=== PATIENT | male | born 1965 | race Caucasian/White ===

== ENCOUNTER 2017-07-24 12:16 | Day surgery (SDC) | payer MEDICARE, OTHER ==
[~2017-07-24] VITALS: Ht 188 cm; Wt 101.7 kg
[~2017-07-24 12:16] MED LIST: CYCL-117 PO; FOLI-49 PO; IBUP800T25 PO; TRAM-40 PO
[2017-07-24] MEDS ORDERED: MONT10TA21 PO (12:48)
[2017-07-24] MEDS ORDERED: GABA300C16 PO (12:48)
[2017-07-24] MEDS ORDERED: OMEP40CA6 PO (12:49)
[2017-07-24] MEDS ORDERED: CELE100C PO (12:49)
[2017-07-24 14:34] VITALS: Ht 188 cm; Wt 101.7 kg
[2017-07-24 14:36] VITALS: BP 112/61; PULSE 94; RESP 18
--- NOTE | 2017-07-24 19:02 | HPN ---
Date/Time of Note Date/Time of Note DATE: 07/24/17 TIME: 18:59 Interval H&P Admission Note Pt. seen H&P reviewed: No system changes Patient scheduled for surgery 5 pm on this date. Apparently, OR scheduling mismanaged available trays and instruments not available for surgical case at time of operation. This was explained to the patient as was the anticipated delay of 50 minutes. Unfortunately, 1 hour and 20 minutes later, we learned that the anesthesiologist assigned to the case had left and the covering anesthesiologist was instructed to do another case. This bump added and additional 1 hour delay which the patient was not willing to accept. I gave him my assurance that I would try and get him onto the schedule as soon as possible first in the line up. Despite the tremendous dis-service done to him, he was polite and accepted the circumstances. BRANDON MORENO MD Jul 24, 2017 19:02
== END 2017-07-24 20:56 | disposition home or self-care (01) ==
LOC: SDS 12:16
PROVIDERS: ATTEND Otolaryngology
DX: J34.89 Other specified disorders of nose and nasal sinuses (principal); Z53.9 Procedure and treatment not carried out, unspecified reason

== ENCOUNTER 2017-08-07 10:11 | Day surgery (SDC) | payer MEDICARE, OTHER ==
[~2017-08-07] VITALS: Ht 188 cm; Wt 106.3 kg
[2017-08-07] VITALS (10 sets, daily range): BP systolic 106–135; BP diastolic 56–80; PULSE 52–74; RESP 16–24; Ht 188 cm; Wt 106.3 kg
[~2017-08-07 10:11] MED LIST changes: +CEFAZOLIN 1 GM INJ ONE; +CELE100C PO; +CLINDAMYCIN 900 MG/50 ML D5W IVPB IVPB ONE; -CYCL-117 PO; -FOLI-49 PO; +GABA300C16 PO; -IBUP800T25 PO; +LIDOCAINE 2% (SDV) 5 ML INJ ONE; +MONT10TA21 PO; +OMEP40CA6 PO; -TRAM-40 PO
--- NOTE | 2017-08-07 12:28 | HPN ---
Date/Time of Note Date/Time of Note DATE: 08/07/17 TIME: 12:28 Interval H&P Admission Note Pt. seen H&P reviewed: No system changes BRANDON MORENO MD Aug 07, 2017 12:28
[2017-08-07] MEDS ORDERED: PROPOFOL 20 ML ONE (12:44)
[2017-08-07] MEDS ORDERED: LIDOCAINE 1%/EPI 30 ML INJ ONE (12:46)
[2017-08-07] MEDS ORDERED: COCAINE 4% 4 ML TOP ONE (12:47)
[2017-08-07] MEDS ORDERED: ROCURONIUM 50 MG INJ ONE (12:48)
[2017-08-07] MEDS ORDERED: DEXAMETHASONE 4 MG/ML 1 ML INJ ONE (13:23)
[2017-08-07] MEDS ORDERED: ONDANSETRON 4 MG INJ ONE (13:23)
[2017-08-07] MEDS ORDERED: EPINEPHrine 0.1 MG/ML SYG ONE (13:26)
[2017-08-07] MEDS ORDERED: BACITRACIN 0.9 GM OINT ONE ×2 (14:13→14:14)
[2017-08-07] MEDS ORDERED: BACITRACIN/POLYMYXIN 28.35 GM OINT TOP ONE (14:15)
[2017-08-07] MEDS ORDERED: LABETALOL HCL 20MG INJ ONE (14:19)
--- NOTE | 2017-08-07 14:36 | OPR ---
Date/Time of Note Date/Time of Note DATE: 08/07/17 TIME: 14:29 Operative Report Procedure Date: Aug 07, 2017 Preoperative Diagnosis Acquired nasal deformity, valve collapse, nasal congestion. Postoperative Diagnosis Same Operation/Procedure Performed Open nasoseptal reconstruction, compliance lead grafting, nasal tip rhinoplasty, submucous resection of inferior turbinates, placement of internal splints. Surgeon see signature line Steward/Stewardess Room None Anesthesia Type: general Estimated Blood Loss: 10 - 50 ml's Transfusion none Specimen none Grafts/Implants none Complications none Pt Condition Post Procedure: stable Disposition: PACU Indications Nasal congestion due to acquired nasal deformity. Procedure Description Description of procedure: The patient was identified in the holding area. We had a discussion to confirm understanding of all indications risks benefits alternatives and postoperative care associated with the operation. The patient signed informed consent was taken to the operating room. The patient was laid supine on the operating room table and general anesthesia was achieved without difficulty. The face was draped in sterile fashion and the nose was packed with 4% cocaine pledgets. The nasal septum was infiltrated with 5 cc of 1% lidocaine with epinephrine in the submucoperiosteal plane bilaterally. The face was prepped and draped sterilly. An inverted V collumelar incision was made and the skin soft tissue envelope elevated. The cartilagenous nasal skeleton was freed from excessive scar, and overlying soft tissues. The septum had been crushed internally and folded on itself. The LLC were bowed internally. The spetum was at the fractured segment and the intermediate crura of the LLCs were removed and flipped over. All were sewn back into proper position with interrupted nylon suture. The septal cartilage was crosshatched and replaced. Thermal Surfacing Machine Operator grafts were harvested from the posterior cartilagenous septum and placed between the ULC and septum. These were secured with 40 fast mattress sutures. At this point the right inferior turbinate was medialized with a Dana elevator. The Coblation wand on a setting of 6 was used to enter the turbinate in the inferior medial submucosal compartment. 10 seconds of Coblation were performed at the 3rd 2nd and 1st shea after which the turbinate was crushed laterally into the lateral nasal wall with a Thibodeaux elevator. The contralateral turbinate was addressed in similar fashion to complete the bilateral submucous resection and lateral fracturing of the inferior turbinates. Septal splints were folded over and placed into the internal nasal valve. A Merocel pack was placed on each side. Layered closure of the wound was performed. The patient was awakened, extubated and taken to the PACU in stable condition. Complications: None. BRANDON MORENO MD Aug 07, 2017 14:36
[2017-08-07] MEDS ORDERED: LABETALOL HCL 20MG INJ IV PRN (15:00)
[2017-08-07] MEDS ORDERED: OXYCODONE/ACETAMINOPHEN (5/325) TAB PO PRN ×2 (15:00)
[2017-08-07] MEDS ORDERED: MEPERIDINE 25 MG INJ IV PRN (15:00)
[2017-08-07] MEDS ORDERED: HYDROCODONE/APAP (5/325) TAB PO PRN (15:00)
[2017-08-07] MEDS ORDERED: ONDANSETRON 4 MG INJ IV PRN (15:00)
[2017-08-07] MEDS ORDERED: EPHEDrine SULFATE 50 MG/5 ML SYG IV PRN (15:00)
[2017-08-07] MEDS ORDERED: HYDROmorphONE (0.2 MG/ML) 10ML SYG IV PRN ×3 (15:00)
[2017-08-07] MEDS ORDERED: FENTAnyl 50 MCG/ML VIAL IV PRN ×3 (15:00)
[2017-08-07] MEDS ORDERED: hydrALAzine 20 MG INJ IV PRN (15:00)
[2017-08-07] MEDS ORDERED: DIPHENHYDRAMINE 50 MG INJ IV PRN (15:00)
== END 2017-08-07 17:29 | disposition home or self-care (01) ==
LOC: SDS 10:11
PROVIDERS: ATTEND Otolaryngology
DX: M95.0 Acquired deformity of nose (principal); J34.89 Other specified disorders of nose and nasal sinuses; K70.30 Alcoholic cirrhosis of liver without ascites
CPT/HCPCS: 30140; 30420; 82962; J0171; J0690; J1100; J1170; J2405; J3010

== ENCOUNTER 2017-10-03 16:00 | Day surgery (SDC) | END 2017-10-03 22:00 | disposition home or self-care (01) ==